=== PATIENT | female | born 1950 | race American Indian/Alaskan Native ===

== ENCOUNTER 2016-11-01 07:08 | Observation (INO) | payer MEDICARE ==
[2016-11-01 08:11] LABS: Hematocrit 37.5 % (30.3-42.9); Hemoglobin 12.3 gm/dl (10.1-14.3); Mean Corpuscular HGB Conc 33 % (30-34); Mean Corpuscular Hemoglobin 32 pg (28-32); Mean Corpuscular Volume 98 fl (79-97); Platelet Count 320 K/mm3 (140-440); Red Blood Count 3.83 M/mm3 (3.65-5.03); White Blood Count 4.1 K/mm3 (4.5-11.0)
[2016-11-01 08:28] LABS: Alanine Aminotransferase 184 units/L (7-56); Albumin/Globulin Ratio 1.3 %; Alkaline Phosphatase 203 units/L (35-129); Anion Gap 19 mmol/L; Blood Urea Nitrogen 9 mg/dL (7-17); Calcium 9.5 mg/dL (8.4-10.2); Carbon Dioxide 25 mmol/L (22-30); Glucose 101 mg/dL (65-100); Sodium 139 mmol/L (137-145); Total Protein 7.2 g/dL (6.3-8.2)
[2016-11-01 08:49] LABS: Bacteria,Urine 1+ /HPF (Negative); Bilirubin,Urine NEG (Negative); Blood,Urine SM (Negative); Ketones,Urine NEG (Negative); Leukocyte Esterase,Urine MOD (Negative); Mucus,Urine 3+ /HPF; Nitrite,Urine NEG (Negative)
[2016-11-01 08:59] LABS: Lipase 413 units/L (13-60)
[2016-11-01 09:12] LABS: Anisocytosis 1+; Blastocytes % (Manual) 0 %
[2016-11-01 09:13] LABS: Diff Status Complete
--- NOTE | 2016-11-01 13:56 | Admit Criteria Form ---
Admission Criteria Documentation: PANCREATITIS Clinical Indications for Admission to Inpatient Care (Place 'X' for any and all applicable criteria): Admission is indicated for ANY ONE of the following (1)(2)(3)(4): [ X]I. Acute pancreatitis[A] as indicated by 2 or more of the following: [X ]a) Abdominal pain (eg, epigastric, left upper quadrant) [ X]b) Serum amylase or serum lipase greater than 3 times the upper limit of normal [ ]c) Characteristic findings from abdominal imaging (eg, pancreatic inflammation, pancreatic necrosis, peripancreatic fluid collection)[B] [ ]II. Pancreatitis (acute or chronic) requiring inpatient care as indicated by 1 or more of the following: [ ]a) Inability to maintain oral hydration Hypoxemia [ ]b) Evidence of infection (eg, fever, peripancreatic abscess) [ ]c) Severe pain requiring acute inpatient management [ ]d) Hemodynamic instability [ ]e) Hypoxemia [ ]f) Acute renal failure [ ]g) Severe electrolyte abnormalities Extended stay beyond goal length of stay may be needed for (1)(11) [ ]a) Severe acute pancreatitis (10)(19) [ ]b) Persistent symptoms, ascites, or pleural effusion [ ]c) Abdominal compartment syndrome (10) [ ]d) Late complications [ ]e) Acute renal failure (27) [ ]f) Gallstones in gallbladder The original [employer] content created by [employer] has been revised. The portions of the content which have been revised are identified through the use of italic text or in bold,and [facility] has neither reviewed nor approved the modified material.All other unmodified content is copyright [employer] Please see references footnoted in the original [employer] edition 2016 Admission Criteria Met: Yes
--- NOTE | 2016-11-01 14:05 | Emergency Department Report ---
HPI - General Chief Complaint: Abdominal Pain Time Seen by Provider: 11/01/16 13:44 - HPI HPI: Chief complaint: Gallstones, pancreatitis and elevated liver function tests HPI: Patient was admitted to the hospital October 29 and workup showed elevated liver function tests and lipase as well as gallstones. Patient's, and bile duct on CT scan is 1.2 cm but MRCP did not show any stones or strictures and the common bile duct had decreased in size indicating possible passage of a stone. Patient states she had to leave the hospital yesterday for a family emergency and he has returned to be readmitted to the hospital. Patient states that she is not been eating anything except for clear liquids and her abdominal pain is improved but she still has some epigastric pain. Patient states she now has some left flank pain that is new. Patient denies any fever and has not been vomiting as she has not been eating. Mode of arrival: [private car] Source: [Patient] [old chart] Began: 8 days ago Duration: 8 days Context: See above Quality: Dull Severity: 8 of 10 Improved with: Nothing Worsened with: Eating Associated signs and symptoms: Nausea ED Past Medical Hx - Past Medical History Previous Medical History?: Yes Hx Hypertension: Yes Hx CVA: Yes Hx Congestive Heart Failure: Yes (Patient had congestive heart failure in 2007) - Surgical History Past Surgical History?: Yes Additional Surgical History: Partial hysterectomy - Social History Smoking Status: Former Smoker Substance Use Type: Alcohol - Medications Home Medications: Home Medications Medication Instructions Recorded Confirmed Last Taken Type Omeprazole 40 mg PO DAILY 10/29/16 10/29/16 Unknown History Ranitidine HCl [Zantac 150 MG TAB] 150 mg PO BID 10/29/16 10/29/16 Unknown History Spironolactone [Aldactone] 25 mg PO QDAY 10/29/16 10/29/16 Unknown History amLODIPine [Norvasc] 5 mg PO DAILY 10/29/16 10/29/16 Unknown History ED Review of Systems ROS: Stated complaint: ABD/BACK PAIN Other details as noted in HPI ROS Constitutional: No fever ENT: No uri symptoms Cardiovascular: No chest pain Respiratory: No sob or cough GI: No diarrhea : No dysuria frequency or urgency, Skin: No rash Neuro: No focal weakness or numbness Psych: No depression Brian/lymph: No edema Physical Exam - Physical Exam Vital Signs: Vital Signs 11/01/16 11/01/16 11/01/16 07:41 13:22 13:24 Temperature 98.5 F 98.6 F Pulse Rate 58 L 99 H Respiratory 16 16 16 Rate Blood Pressure 125/81 Blood Pressure 127/89 [Left] O2 Sat by Pulse 100 100 100 Oximetry Physical Exam: GENERAL: The patient is well-developed well-nourished . HEENT: Normocephalic. Atraumatic. Extraocular motions are intact. Patient has moist mucous membranes. NECK: Supple. No meningitic signs are noted. There is no adenopathy noted. CHEST/LUNGS: Clear to auscultation. There is no respiratory distress noted. HEART/CARDIOVASCULAR: Regular. There is no tachycardia. There is no gallop rub or murmur. ABDOMEN: Abdomen is soft, mild epigastric tenderness patient has normal bowel sounds. There is no abdominal distention. Left flank tenderness SKIN: There is no rash. There is no edema. There is no diaphoresis. NEURO: The patient is awake, alert, and oriented. The patient is cooperative. The patient has no focal neurologic deficits. The patient has normal speech. MUSCULOSKELETAL: There is no tenderness or deformity. There is no limitation range of motion. There is no evidence of acute injury. ED Course Vital Signs 11/01/16 11/01/16 11/01/16 07:41 13:22 13:24 Temperature 98.5 F 98.6 F Pulse Rate 58 L 99 H Respiratory 16 16 16 Rate Blood Pressure 125/81 Blood Pressure 127/89 [Left] O2 Sat by Pulse 100 100 100 Oximetry ED Medical Decision Making - Lab Data Result diagrams: 11/01/16 07:55 11/01/16 07:55 Laboratory Tests 11/01/16 11/01/16 07:55 08:06 Total Bilirubin 2.0 H AST 69 H ALT 184 H Alkaline Phosphatase 203 H Lipase 413 H Ur Leukocyte Esterase Mod Urine WBC (Auto) 50.0 H Urine RBC (Auto) 26.0 U Epithel Cells (Auto) 7.0 Urine Bacteria (Auto) 1+ Calcium Oxalate Crystal 3+ Critical care attestation.: If time is entered above; I have spent that time in minutes in the direct care of this critically ill patient, excluding procedure time. ED Disposition Clinical Impression: Hyperbilirubinemia, Transaminitis, Cholelithiases, Acute pancreatitis Urinary tract infection Qualifiers: Urinary tract infection type: site unspecified Disposition: OP ADMITTED IP TO THIS HOSP Is pt being admited?: Yes Does the pt Need Aspirin: No Condition: Fair Instructions: Abdominal Pain (ED) Referrals: PRIMARY CARE,MD [Primary Care Provider] - 3-5 Days Time of Disposition: 14:28 (admit to the hospitalist)
[2016-11-01] MEDS ORDERED: MORPHINE IV PRN (15:03)
[2016-11-01] MEDS ORDERED: ZOFRAN IV PRN (15:03)
[2016-11-01] MEDS ORDERED: AMBIEN PO PRN (15:03)
[2016-11-01] MEDS ORDERED: TYLENOL PO PRN (15:03)
[2016-11-01] MEDS ORDERED: DULCOLAX PR PRN (15:03)
[2016-11-01] MEDS ORDERED: MILK OF MAGNESIA PO PRN (15:03)
--- NOTE | 2016-11-01 15:20 | History and Physical Report ---
History of Present Illness Date of examination: 11/01/16 Chief complaint: And signed out AMA yesterday due to pressing family problems and comes back today because she was told she needs gallbladder surgery History of present illness: 65-year-old Shamika Raymundo was admitted to the hospital October 29 and workup showed elevated liver function tests and lipase as well as gallstones. Patient's bile duct on CT scan showed 1.2 cm but MRCP did not show any stones or strictures and the common bile duct had decreased in size indicating possible passage of a stone. Patient states she had to leave the hospital yesterday for a family emergency and has returned to be readmitted to the hospital. Patient states that she is not been eating anything except for clear liquids and her abdominal pain is improved but she still has some epigastric pain. Patient states she now has some left flank pain that is new. Patient denies any fever/ chills, nausea or vomiting. Past History Past Medical History: hypertension, stroke (left-sided stroke in 2005 with full recovery) Past Surgical History: hysterectomy, Other (left knee surgery) Social history: alcohol abuse. denies: smoking Family history: diabetes, hypertension Medications and Allergies Allergies Allergy/AdvReac Type Severity Reaction Status Date / Time No Known Allergies Allergy Unverified 11/01/16 07:47 Home Medications Medication Instructions Recorded Confirmed Last Taken Type Omeprazole 40 mg PO DAILY 10/29/16 11/01/16 Unknown History Ranitidine HCl [Zantac 150 MG TAB] 150 mg PO BID 10/29/16 11/01/16 Unknown History Spironolactone [Aldactone] 25 mg PO QDAY 10/29/16 11/01/16 Unknown History amLODIPine [Norvasc] 5 mg PO DAILY 10/29/16 10/29/16 Unknown History Active Meds: Active Medications Acetaminophen (Tylenol) 650 mg PO Q4H PRN PRN Reason: Pain MILD(1-3)/Fever >100.5/ONTIVEROS Bisacodyl (Dulcolax) 10 mg [place] QDAY PRN PRN Reason: Constipation unrelieved by MOM Heparin Sodium (Porcine) (Heparin) 5,000 unit SUB-Q Q8HR MARINO Dextrose/Sodium Chloride (D5ns) 1,000 mls @ 75 mls/hr IV DIRECT MARINO Levofloxacin (Levaquin) 500 mg PO DAILY MARINO Magnesium Hydroxide (Milk Of Magnesia) 30 ml PO Q4H PRN PRN Reason: Constipation Morphine Sulfate (Morphine) 1 mg IV Q4H PRN PRN Reason: Pain, Moderate (4-6) Ondansetron HCl (Zofran) 4 mg IV Q8H PRN PRN Reason: N/V unrelieved by Reglan Pantoprazole Sodium (Protonix) 40 mg PO DAILY MARINO Zolpidem Tartrate (Ambien) 5 mg PO QHS PRN PRN Reason: Insomnia Review of Systems Constitutional: no weight loss, no weight gain, no fever, no chills, no fatigue , no weakness Ears, nose, mouth and throat: no ear pain, no ear discharge, no sore throat, no headache, no vertigo Cardiovascular: no chest pain, no palpitations, no syncope, no lightheadedness Respiratory: no cough, no shortness of breath, no dyspnea on exertion Gastrointestinal: abdominal pain (mild upper abdominal pain), no nausea, no vomiting, no constipation, no melena, no heartburn Genitourinary Female: flank pain (mild left mid back pain), urinary frequency, no dysuria, no urge incontinence, no nocturia Menstruation: postmenopausal Rectal: no pain Musculoskeletal: neck pain, no low back pain Integumentary: no rash, no pruritis Neurological: no seizures, no syncope Psychiatric: no anxiety, no depression Endocrine: no polydipsia, no polyuria, no nocturia Exam - Constitutional Vitals: Temp Pulse Resp BP Pulse Ox 98.6 F 99 H 16 127/89 100 11/01/16 13:22 11/01/16 13:22 11/01/16 13:24 11/01/16 13:22 11/01/16 13:24 General appearance: Present: no acute distress, well-nourished - EENT Eyes: Present: PERRL, EOM intact ENT: hearing intact, clear oral mucosa, no thrush - Neck Neck: Present: supple, normal ROM, masses or JVD - Respiratory Respiratory effort: normal Respiratory: bilateral: CTA - Cardiovascular Rhythm: regular Heart Sounds: Present: S1 & S2 - Extremities Extremities: No edema - Abdominal General gastrointestinal: Present: soft, tender (minimally tender in the upper( epigastric) and mid abdomen. No tenderness in the right upper quadrant). Absent: hepatomegaly, splenomegaly - Rectal Rectal Exam: deferred - Integumentary Integumentary: Present: clear, warm, dry - Musculoskeletal Musculoskeletal: strength equal bilaterally - Psychiatric Psychiatric: appropriate mood/affect, cooperative - Neurologic Neurologic: CNII-XII intact, no focal deficits Results - Labs CBC & Chem 7: 11/01/16 07:55 11/01/16 07:55 Labs: Abnormal lab results 11/01/16 11/01/16 11/01/16 Range/Units 07:55 07:55 08:06 WBC 4.1 L (4.5-11.0) K/mm3 MCV 98 H (79-97) fl RDW 13.0 L (13.2-15.2) % Seg Neuts % (Manual) 39.0 L (40.0-70.0) % Lymphocytes % (Manual) 38.0 H (13.4-35.0) % Monocytes % (Manual) 19.0 H (0.0-7.3) % Seg Neutrophils # Man 1.6 L (1.8-7.7) K/mm3 Creatinine 0.6 L (0.7-1.2) mg/dL Glucose 101 H (65-100) mg/dL Total Bilirubin 2.0 H (0.1-1.2) mg/dL AST 69 H (5-40) units/L ALT 184 H (7-56) units/L Alkaline Phosphatase 203 H (35-129) units/L Lipase 413 H (13-60) units/L Urine WBC (Auto) 50.0 H (0.0-6.0) /HPF Assessment and Plan - Patient Problems (1) Hyperbilirubinemia Current Visit: Yes Status: Acute Plan to address problem: Much improved Laboratory results reviewed (2) Transaminitis Current Visit: Yes Status: Acute Plan to address problem: Continued to improve (3) Urinary tract infection Current Visit: Yes Status: Acute Plan to address problem: Start on oral antibiotic (4) Gallbladder sludge Current Visit: No Status: Acute Plan to address problem: Surgical consult requested to see if they plan to do surgery If no plans she may be discharged tomorrow We'll start the patient on clear liquid diet
--- NOTE | 2016-11-01 15:24 | Gastroenterology Consultation ---
<MART WEI GLENNA - Last Filed: 11/01/16 15:32> History of Present Illness - Reason for Consult Consult date: 11/01/16 pancreatitis Requesting physician: JAMES SHAFFER - History of Present Illness Ms Raymundo is a 66 yo AAF with h/o alcohol abuse who presents with 2 week history of worsening abdominal pain and n/v. Pt states she was in her usual state of health until symptoms started. Her pain has been in her upper abdomen with radiation to her back. She has been unable to tolerate po intake over the last several days, with episodes of n/v soon after eating. She has lost ~15 lbs during this time frame. The pain is mostly constant and worsened with meals. She reports last alcohol drink was ~2 weeks ago when symptoms started (drinks cup of gin and multiple beers per day). Denies similar symptoms in the past, prior h/o known liver disease, or h/o pancreatitis. Patient left AMA due to an emergency at home and now presents back to the hospital for continued workup. She states she has not had anything except clear liquids since the time she left. Previous workup includes MRCP negative for stones, US significant for sludge. Past History Past Medical History: hypertension, stroke Past Surgical History: hysterectomy, total knee replacement (left knee surgery) Social history: alcohol abuse Family history: diabetes, hypertension Medications and Allergies Allergies Allergy/AdvReac Type Severity Reaction Status Date / Time No Known Allergies Allergy Unverified 11/01/16 07:47 Home Medications Medication Instructions Recorded Confirmed Last Taken Type Omeprazole 40 mg PO DAILY 10/29/16 11/01/16 Unknown History Ranitidine HCl [Zantac 150 MG TAB] 150 mg PO BID 10/29/16 11/01/16 Unknown History Spironolactone [Aldactone] 25 mg PO QDAY 10/29/16 11/01/16 Unknown History amLODIPine [Norvasc] 5 mg PO DAILY 10/29/16 10/29/16 Unknown History Pantoprazole [Protonix TAB] 40 mg PO DAILY #30 tablet 11/02/16 Unknown Rx traMADol [Ultram] 50 mg PO Q6HR PRN #20 tablet 11/02/16 Unknown Rx Active Meds: Active Medications Acetaminophen (Tylenol) 650 mg PO Q4H PRN PRN Reason: Pain MILD(1-3)/Fever >100.5/ONTIVEROS Bisacodyl (Dulcolax) 10 mg [place] QDAY PRN PRN Reason: Constipation unrelieved by MOM Heparin Sodium (Porcine) (Heparin) 5,000 unit SUB-Q Q8HR [facility] Dextrose/Sodium Chloride (D5ns) 1,000 mls @ 75 mls/hr IV DIRECT [facility]INO Levofloxacin (Levaquin) 500 mg PO DAILY [facility] Magnesium Hydroxide (Milk Of Magnesia) 30 ml PO Q4H PRN PRN Reason: Constipation Morphine Sulfate (Morphine) 1 mg IV Q4H PRN PRN Reason: Pain, Moderate (4-6) Ondansetron HCl (Zofran) 4 mg IV Q8H PRN PRN Reason: N/V unrelieved by Reglan Pantoprazole Sodium (Protonix) 40 mg PO DAILY [facility]INO Zolpidem Tartrate (Ambien) 5 mg PO QHS PRN PRN Reason: Insomnia Review of Systems - Review of Systems All systems: negative Constitutional: other (back pain) Exam - Constitutional Vital Signs: Temp Pulse Resp BP Pulse Ox 98.6 F 99 H 16 127/89 100 11/01/16 13:22 11/01/16 13:22 11/01/16 13:24 11/01/16 13:22 11/01/16 13:24 General appearance: no acute distress - EENT Eyes: EOM intact ENT: hearing intact - Neck Neck: supple - Respiratory Respiratory: bilateral: CTA - Cardiovascular Rhythm: regular Heart Sounds: Present: S1 & S2 Extremities: Full ROM - Gastrointestinal General gastrointestinal: Present: soft, non-tender, normal bowel sounds - Integumentary Integumentary: Present: warm, dry - Neurologic Neurological: alert and oriented x3 - Psychiatric Psychiatric: cooperative - Labs CBC & Chem 7: 11/01/16 07:55 11/01/16 07:55 Lab Results: Laboratory Results - last 24 hr 11/01/16 11/01/16 11/01/16 07:55 07:55 08:06 WBC 4.1 L RBC 3.83 Hgb 12.3 Hct 37.5 MCV 98 H MCH 32 MCHC 33 RDW 13.0 L Plt Count 320 [place] % (Auto) Supervisor Mixing Add Manual Diff Complete Total Counted 100 Seg Neuts % (Manual) 39.0 L Band Neutrophils % 0 Lymphocytes % (Manual) 38.0 H Reactive Lymphs % (Man) 0 Monocytes % (Manual) 19.0 H Eosinophils % (Manual) 3.0 Basophils % (Manual) 1.0 Metamyelocytes % 0 Myelocytes % 0 Promyelocytes % 0 Blast Cells % 0 Nucleated RBC % Not Reportable Seg Neutrophils # Man 1.6 L Band Neutrophils # 0.0 Lymphocytes # (Manual) 1.6 Abs React Lymphs (Man) 0.0 Monocytes # (Manual) 0.8 Eosinophils # (Manual) 0.1 Basophils # (Manual) 0.0 Metamyelocytes # 0.0 Myelocytes # 0.0 Promyelocytes # 0.0 Blast Cells # 0.0 WBC Morphology Not Reportable Hypersegmented Neuts Not Reportable Hyposegmented Neuts Not Reportable Hypogranular Neuts Not Reportable Smudge Cells Not Reportable Toxic Granulation Not Reportable Toxic Vacuolation Not Reportable Dohle Bodies Not Reportable Pelger-Huet Anomaly Not Reportable Raffaele Rods Not Reportable Platelet Estimate Not Reportable Clumped Platelets Not Reportable Plt Clumps, EDTA Not Reportable Large Platelets Not Reportable Giant Platelets Not Reportable Platelet Satelliting Not Reportable Plt Morphology Comment Not Reportable RBC Morphology Not Reportable Dimorphic RBCs Not Reportable Polychromasia Not Reportable Hypochromasia Not Reportable Poikilocytosis Not Reportable Anisocytosis 1+ Microcytosis Not Reportable Macrocytosis Not Reportable Spherocytes Not Reportable Pappenheimer Bodies Not Reportable Sickle Cells Not Reportable Target Cells Not Reportable Tear Drop Cells Not Reportable Ovalocytes Not Reportable Helmet Cells Not Reportable [place] Bodies Not Reportable [place] Rings Not Reportable [place]eth Cells Not Reportable Bite Cells Not Reportable Crenated Cell Not Reportable Elliptocytes Not Reportable Acanthocytes (Spur) Not Reportable Rouleaux Not Reportable Hemoglobin C Crystals Not Reportable Schistocytes Not Reportable Malaria parasites Not Reportable [place] Bodies Not Reportable Hem Pathologist Commnt No Sodium 139 Potassium 4.0 Chloride 99.0 Carbon Dioxide 25 Anion Gap 19 BUN 9 Creatinine 0.6 L Estimated GFR > 60 BUN/Creatinine Ratio 15.00 Glucose 101 H Calcium 9.5 Total Bilirubin 2.0 H AST 69 H ALT 184 H Alkaline Phosphatase 203 H Total Protein 7.2 Albumin 4.0 Albumin/Globulin Ratio 1.3 Lipase 413 H Urine Color Jeniffer Urine Turbidity Cloudy Urine pH 6.0 Ur Specific [place] 1.021 Urine Protein 30 mg/dl Urine Glucose (UA) Neg Urine Ketones Neg Urine Blood Sm Urine Nitrite Neg Urine Bilirubin Neg Urine Urobilinogen 4.0 Ur Leukocyte Esterase Mod Urine WBC (Auto) 50.0 H Urine RBC (Auto) 26.0 U Epithel Cells (Auto) 7.0 Urine Bacteria (Auto) 1+ Calcium Oxalate Crystal 3+ Urine Mucus 3+ Assessment and Plan 1. Pancreatitis 2. biliary obstruction -Patient previously left AMA prior to complete workup. Now presents with back pain and reports her abdominal pain is improved, although she is only on clear liquids. Lipase noted at 531-413 on admission. LFTS are improving from prior study. -No signs of cholangitis, WBC benign. Afebrile. Pancreas appeared normal on initial CT exam. H/O ETOH use so could have multi-factoral component Ok for clear liquids at this time. Recheck CMP/ Lipase in AM. <LYRIC COBIAN - Last Filed: 11/02/16 17:07> Medications and Allergies Active Meds: Active Medications Acetaminophen (Tylenol) 650 mg PO Q4H PRN PRN Reason: Pain MILD(1-3)/Fever >100.5/ONTIVEROS Bisacodyl (Dulcolax) 10 mg [place] QDAY PRN PRN Reason: [place] [facility] [place] Sodium (Porcine) (Heparin) 5,000 unit SUB-Q Q8HR [facility] Last Admin: 11/02/16 07:09 Dose: Not Given Dextrose/Sodium Chloride (D5ns) 1,000 mls @ 75 mls/hr IV DIRECT [facility] Levofloxacin (Levaquin) 500 mg PO DAILY [facility] Last Admin: 11/02/16 11:21 Dose: 500 mg Magnesium Hydroxide (Milk Of Magnesia) 30 ml PO Q4H PRN PRN Reason: Constipation Morphine Sulfate (Morphine) 1 mg IV Q4H PRN PRN Reason: Pain, Moderate (4-6) Ondansetron HCl (Zofran) 4 mg IV Q8H PRN PRN Reason: N/V unrelieved by Reglan Pantoprazole Sodium (Protonix) 40 mg PO DAILY [facility] Last Admin: 11/02/16 11:21 Dose: 40 mg Zolpidem Tartrate (Ambien) 5 mg PO QHS PRN PRN Reason: Insomnia Exam - Constitutional Vital Signs: Temp Pulse Resp BP Pulse Ox 98.5 F 68 18 154/74 98 11/02/16 15:33 11/02/16 15:33 11/02/16 15:33 11/02/16 15:33 11/02/16 15:33 - Labs CBC & Chem 7: 11/01/16 07:55 11/02/16 04:35 Lab Results: Laboratory Results - last 24 hr 11/02/16 11/02/16 04:35 04:35 PT 13.5 INR 1.04 Sodium 144 Potassium 4.0 Chloride 101.8 Carbon Dioxide 28 Anion Gap 18 BUN 9 Creatinine 0.5 L Estimated GFR > 60 BUN/Creatinine Ratio 18.00 Glucose 95 Calcium 9.2 Total Bilirubin 1.7 H AST 46 H ALT 133 H Alkaline Phosphatase 167 H Total Protein 6.6 Albumin 3.7 L Albumin/Globulin Ratio 1.3 Lipase 288 H Assessment and Plan Pt seen and examined. Agree with note by Nevaeh Wei. Pt re-admitted after leaving AMA. Presented with pancreatitis, likely biliary + alcohol abuse. LFT' s improving, MRCP without signs of obstructive stones. Feels well, and tolerating po. No signs of cholangitis. Discussed alcohol cessation in detail with pt. Also recommend CCY/surgery evaluation after discharge.
[2016-11-01] MEDS ORDERED: D5NS 1,000 ML IV SCH (16:00)
[2016-11-01] MEDS ORDERED: LEVAQUIN ONE (16:12)
[2016-11-01] MEDS: LEVAQUIN PO SCH (16:16)
[2016-11-01] MEDS: HEPARIN SUB-Q SCH (23:48)
[2016-11-02 05:13] LABS: INR 1.04 (0.87-1.13)
[2016-11-02 05:19] LABS: Alanine Aminotransferase 133 units/L (7-56); Albumin 3.7 g/dL (3.9-5); Albumin/Globulin Ratio 1.3 %; Alkaline Phosphatase 167 units/L (35-129); Anion Gap 18 mmol/L; Bilirubin,Total 1.7 mg/dL (0.1-1.2); Blood Urea Nitrogen 9 mg/dL (7-17); Calcium 9.2 mg/dL (8.4-10.2); Carbon Dioxide 28 mmol/L (22-30); Chloride 101.8 mmol/L (98-107); Glucose 95 mg/dL (65-100); Lipase 288 units/L (13-60); Sodium 144 mmol/L (137-145); Total Protein 6.6 g/dL (6.3-8.2)
[2016-11-02] MEDS: HEPARIN SUB-Q SCH (07:09)
--- NOTE | 2016-11-02 08:35 | Progress Note ---
Assessment and Plan Assessment and plan: lft Continues to improve. Await Surgical eval Hospitalist Physical - Constitutional Vitals: Temp Pulse Resp BP Pulse Ox 99.0 F 56 L 16 145/79 98 11/01/16 20:41 11/01/16 20:41 11/01/16 20:41 11/01/16 20:41 11/01/16 20:41 General appearance: Present: no acute distress, well-nourished Results - Labs CBC & Chem 7: 11/01/16 07:55 11/02/16 04:35 Labs: Laboratory Last Values WBC 4.1 K/mm3 (4.5-11.0) L 11/01/16 07:55 RBC 3.83 M/mm3 (3.65-5.03) 11/01/16 07:55 Hgb 12.3 gm/dl (10.1-14.3) 11/01/16 07:55 Hct 37.5 % (30.3-42.9) 11/01/16 07:55 MCV 98 fl (79-97) H 11/01/16 07:55 MCH 32 pg (28-32) 11/01/16 07:55 MCHC 33 % (30-34) 11/01/16 07:55 RDW 13.0 % (13.2-15.2) L 11/01/16 07:55 Plt Count 320 K/mm3 (140-440) 11/01/16 07:55 Davie % (Auto) Dietist 11/01/16 07:55 Add Manual Diff Complete 11/01/16 07:55 Total Counted 100 11/01/16 07:55 Seg Neuts % (Manual) 39.0 % (40.0-70.0) L 11/01/16 07:55 Band Neutrophils % 0 % 11/01/16 07:55 Lymphocytes % (Manual) 38.0 % (13.4-35.0) H 11/01/16 07:55 Reactive Lymphs % (Man) 0 % 11/01/16 07:55 Monocytes % (Manual) 19.0 % (0.0-7.3) H 11/01/16 07:55 Eosinophils % (Manual) 3.0 % (0.0-4.3) 11/01/16 07:55 Basophils % (Manual) 1.0 % (0.0-1.8) 11/01/16 07:55 Metamyelocytes % 0 % 11/01/16 07:55 Myelocytes % 0 % 11/01/16 07:55 Promyelocytes % 0 % 11/01/16 07:55 Blast Cells % 0 % 11/01/16 07:55 Nucleated RBC % Not Reportable 11/01/16 07:55 Seg Neutrophils # Man 1.6 K/mm3 (1.8-7.7) L 11/01/16 07:55 Band Neutrophils # 0.0 K/mm3 11/01/16 07:55 Lymphocytes # (Manual) 1.6 K/mm3 (1.2-5.4) 11/01/16 07:55 Abs React Lymphs (Man) 0.0 K/mm3 11/01/16 07:55 Monocytes # (Manual) 0.8 K/mm3 (0.0-0.8) 11/01/16 07:55 Eosinophils # (Manual) 0.1 K/mm3 (0.0-0.4) 11/01/16 07:55 Basophils # (Manual) 0.0 K/mm3 (0.0-0.1) 11/01/16 07:55 Metamyelocytes # 0.0 K/mm3 11/01/16 07:55 Myelocytes # 0.0 K/mm3 11/01/16 07:55 Promyelocytes # 0.0 K/mm3 11/01/16 07:55 Blast Cells # 0.0 K/mm3 11/01/16 07:55 WBC Morphology Not Reportable 11/01/16 07:55 Hypersegmented Neuts Not Reportable 11/01/16 07:55 Hyposegmented Neuts Not Reportable 11/01/16 07:55 Hypogranular Neuts Not Reportable 11/01/16 07:55 Smudge Cells Not Reportable 11/01/16 07:55 Toxic Granulation Not Reportable 11/01/16 07:55 Toxic Vacuolation Not Reportable 11/01/16 07:55 Dohle Bodies Not Reportable 11/01/16 07:55 Pelger-Huet Anomaly Not Reportable 11/01/16 07:55 Raffaele Rods Not Reportable 11/01/16 07:55 Platelet Estimate Not Reportable 11/01/16 07:55 Clumped Platelets Not Reportable 11/01/16 07:55 Plt Clumps, EDTA Not Reportable 11/01/16 07:55 Large Platelets Not Reportable 11/01/16 07:55 Giant Platelets Not Reportable 11/01/16 07:55 Platelet Satelliting Not Reportable 11/01/16 07:55 Plt Morphology Comment Not Reportable 11/01/16 07:55 RBC Morphology Not Reportable 11/01/16 07:55 Dimorphic RBCs Not Reportable 11/01/16 07:55 Polychromasia Not Reportable 11/01/16 07:55 Hypochromasia Not Reportable 11/01/16 07:55 Poikilocytosis Not Reportable 11/01/16 07:55 Anisocytosis 1+ 11/01/16 07:55 Microcytosis Not Reportable 11/01/16 07:55 Macrocytosis Not Reportable 11/01/16 07:55 Spherocytes Not Reportable 11/01/16 07:55 Pappenheimer Bodies Not Reportable 11/01/16 07:55 Sickle Cells Not Reportable 11/01/16 07:55 Target Cells Not Reportable 11/01/16 07:55 Tear Drop Cells Not Reportable 11/01/16 07:55 Ovalocytes Not Reportable 11/01/16 07:55 Helmet Cells Not Reportable 11/01/16 07:55 Siddiqui-[place] Bodies Not Reportable 11/01/16 07:55 [place] Rings Not Reportable 11/01/16 07:55 Yaneth Cells Not Reportable 11/01/16 07:55 Bite Cells Not Reportable 11/01/16 07:55 Crenated Cell Not Reportable 11/01/16 07:55 Elliptocytes Not Reportable 11/01/16 07:55 Acanthocytes (Spur) Not Reportable 11/01/16 07:55 Rouleaux Not Reportable 11/01/16 07:55 Hemoglobin C Crystals Not Reportable 11/01/16 07:55 Schistocytes Not Reportable 11/01/16 07:55 Malaria parasites Not Reportable 11/01/16 07:55 Arcenio Bodies Not Reportable 11/01/16 07:55 Hem Pathologist Commnt No 11/01/16 07:55 PT 13.5 Sec. (12.2-14.9) 11/02/16 04:35 INR 1.04 (0.87-1.13) 11/02/16 04:35 Sodium 144 mmol/L (137-145) 11/02/16 04:35 Potassium 4.0 mmol/L (3.6-5.0) 11/02/16 04:35 Chloride 101.8 mmol/L (98-107) 11/02/16 04:35 Carbon Dioxide 28 mmol/L (22-30) 11/02/16 04:35 Anion Gap 18 mmol/L 11/02/16 04:35 BUN 9 mg/dL (7-17) 11/02/16 04:35 Creatinine 0.5 mg/dL (0.7-1.2) L 11/02/16 04:35 Estimated GFR > 60 ml/min 11/02/16 04:35 BUN/Creatinine Ratio 18.00 % 11/02/16 04:35 Glucose 95 mg/dL (65-100) 11/02/16 04:35 Calcium 9.2 mg/dL (8.4-10.2) 11/02/16 04:35 Total Bilirubin 1.7 mg/dL (0.1-1.2) H 11/02/16 04:35 AST 46 units/L (5-40) H 11/02/16 04:35 ALT 133 units/L (7-56) H 11/02/16 04:35 Alkaline Phosphatase 167 units/L (35-129) H 11/02/16 04:35 Total Protein 6.6 g/dL (6.3-8.2) 11/02/16 04:35 Albumin 3.7 g/dL (3.9-5) L 11/02/16 04:35 Albumin/Globulin Ratio 1.3 % 11/02/16 04:35 Lipase 288 units/L (13-60) H 11/02/16 04:35 Urine Color Jeniffer (Yellow) 11/01/16 08:06 Urine Turbidity Cloudy (Clear) 11/01/16 08:06 Urine pH 6.0 (5.0-7.0) 11/01/16 08:06 Ur Specific Cameron 1.021 (1.003-1.030) 11/01/16 08:06 Urine Protein 30 mg/dl mg/dL (Negative) 11/01/16 08:06 Urine Glucose (UA) Neg mg/dL (Negative) 11/01/16 08:06 Urine Ketones Neg mg/dL (Negative) 11/01/16 08:06 Urine Blood Sm (Negative) 11/01/16 08:06 Urine Nitrite Neg (Negative) 11/01/16 08:06 Urine Bilirubin Neg (Negative) 11/01/16 08:06 Urine Urobilinogen 4.0 mg/dL (<2.0) 11/01/16 08:06 Ur Leukocyte Esterase Mod (Negative) 11/01/16 08:06 Urine WBC (Auto) 50.0 /HPF (0.0-6.0) H 11/01/16 08:06 Urine RBC (Auto) 26.0 /HPF (0.0-6.0) 11/01/16 08:06 U Epithel Cells (Auto) 7.0 /HPF (0-13.0) 11/01/16 08:06 Urine Bacteria (Auto) 1+ /HPF (Negative) 11/01/16 08:06 Calcium Oxalate Crystal 3+ 11/01/16 08:06 Urine Mucus 3+ /HPF 11/01/16 08:06
[2016-11-02] MEDS ORDERED: PROTONIX PO SCH (10:00)
[2016-11-02] MEDS ORDERED: LEVAQUIN PO SCH ×2 (10:00)
[2016-11-02] MEDS: LEVAQUIN PO SCH (11:21)
--- NOTE | 2016-11-02 14:17 | Discharge Summary ---
Providers - Providers Date of Admission: 11/01/16 15:03 Date of discharge: 11/02/16 Attending physician: SINDY MON MD Primary care physician: GENERAL OFFICE DISPATCHER Hospitalization Reason for admission: abdominal pain Condition: Fair Hospital course: Patient is a 65-year-old admitted to the hospital October 29 and workup showed elevated liver function tests and lipase as well as gallstones. Patient's bile duct on CT scan showed 1.2 cm but MRCP did not show any stones or strictures and the common bile duct had decreased in size indicating possible passage of a stone. Patient states she had to leave the hospital yesterday for a family emergency and has returned to be readmitted to the hospital. Patient states that she is not been eating anything except for clear liquids and her abdominal pain is improved but she still has some epigastric pain. Patient states she now has some left flank pain that is new. Patient denies any fever/ chills, nausea or vomiting. on readmission, the Patient reports improvement in symptomatology. Was seen by GI with no further intervention recommended by them. Patient was also seen by surgery and recommended outpatient reevaluation for elective cholecystectomy which the patient to soak it with. She is tolerating diet and this time is stable for discharge. Discharge diagnoses (1) gallstone related pancreatitis (2) Hyperbilirubinemia (3) Urinary tract infection (4) Gallbladder sludge Disposition: DISCHARGED TO HOME OR SELFCARE Time spent for discharge: 35 mins Core Measure Documentation - Palliative Care Palliative Care/ Comfort Measures: Not Applicable - Core Measures Any of the following diagnoses?: none - VTE Discharge Requirements Deep Vein Thrombosis/Pulmonary Embolism Present on Admission: No Exam - Physical Exam Narrative exam: VITAL SIGNS: Reviewed. GENERAL: The patient appeared well nourished and normally developed. Vital signs as documented. HEAD: No signs of head trauma. EYES: Pupils are equal. Extraocular motions intact. EARS: Hearing grossly intact. MOUTH: Oropharynx is normal. NECK: No adenopathy, no JVD. CHEST: Chest with clear breath sounds bilaterally. No wheezes, rales, or rhonchi. CARDIAC: Regular rate and rhythm. S1 and S2, without murmurs, gallops, or rubs. VASCULAR: No Edema. Peripheral pulses normal and equal in all extremities. ABDOMEN: Soft, without detectable tenderness. No sign of distention. No rebound or guarding, and no masses palpated. Bowel Sounds normal. MUSCULOSKELETAL: Good range of motion of all major joints. Extremities without clubbing, cyanosis or edema. NEUROLOGIC EXAM: Alert and oriented x 3. No focal sensory or strength deficits. Speech normal. Follows commands. PSYCHIATRIC: Mood normal. SKIN: No rash or lesions. - Constitutional Vitals: Temp Pulse Resp BP Pulse Ox 99.0 F 56 L 16 145/79 98 11/01/16 20:41 11/01/16 20:41 11/01/16 20:41 11/01/16 20:41 11/01/16 20:41 Plan Activity: advance as tolerated, fall precautions Diet: low fat Follow up with: PRIMARY CARE, [Primary Care Provider] - 3-5 Days MARTHA NICHOLSON MD [Staff Physician] - 7 Days Prescriptions: Pantoprazole [Protonix TAB] 40 mg PO DAILY #30 tablet traMADol [Ultram] 50 mg PO Q6HR PRN #20 tablet PRN Reason: Pain
[2016-11-02 15:35] VITALS: BP 154/74
== END 2016-11-02 18:00 | disposition home or self-care (01) ==
LOC: ED 07:08 → CC2 15:03
PROVIDERS: ADMIT Internal Medicine; ATTEND Internal Medicine
DX: N39.0 Urinary tract infection, site not specified (principal); E80.6 Other disorders of bilirubin metabolism; R74.0 Nonspecific elevation of levels of transaminase and lactic acid dehydrogenase [LDH]; K83.9 Disease of biliary tract, unspecified; I10 Essential (primary) hypertension; Z86.73 Personal history of transient ischemic attack (TIA), and cerebral infarction without residual deficits; Z90.710 Acquired absence of both cervix and uterus; Z83.3 Family history of diabetes mellitus; Z82.49 Family history of ischemic heart disease and other diseases of the circulatory system
CPT/HCPCS: 36415; 80053; 81001; 83690; 85007; 85025; 85610; 87086; G0378